=== PATIENT | male | born 1945 | race Caucasian/White ===

== ENCOUNTER 2019-03-31 12:45 | Outpatient (CLI) | payer MEDICARE, OTHER ==
[2019-03-31 17:10] VITALS: BP 119/77
--- NOTE | 2019-03-31 17:10 | SLEEP CARE CONSULTATION ---
Information from patient questionnaire entered by Pema Castro. I have reviewed and concur with the information entered by Pema Castro. This document represents the service I personally performed and the decisions made by me, Keren Swain MD, [facility]. History of Present Illness Reason for Visit: New patient Chief Complaint: reports: Unrefreshed sleep, Observed pauses in breathing, Fatigue, Frequent awakenings at night Duration of Symptoms: more than a year Usual bedtime: 7286-1830 Time it takes to fall asleep: almost immediately Snores at night: Yes (not much) Observed to quit breathing while asleep: Yes Sleeps alone due to snoring: No Number of times waking at night: 2-4 Reasons for waking at night: reports: Pain, Bathroom Toss, Turn, or Twitch while sleeping: Yes Recalls having dreams: Yes Usually gets out of bed at: [id number] Feels refreshed in the morning: No Morning headache: No Sleepy or fatigued during the day: Yes Ever fallen asleep while driving: Yes (rarely) Takes day naps: Yes Dreams during day naps: No Prior sleep studies: No Additional HPI information: I had the pleasure of seeing Mr. Perez today regarding the possibility of him having a sleep disorder. As you know, he is a 73 year old gentleman who complains of shortness of breath at night and in the morning. The patient tells me that he normally goes to bed around 10 - 11 pm, and it takes him approximately just a few minutes to fall asleep. He has been told that he snores loudly and irregularly at night. He has also been observed to stop breathing in his sleep. His can still sleep in the same bed. He can reca ll waking up on the average of 2 - 4 times during the night. Most of the time he wakes up because of having to use the bathroom and pain. He has not awakened because of his own snoring, choking, or having to gasp for air. There is a lot of tossing and turning in his sleep. No somniloquy (sleep talking) or somnambulism (sleep walking). Generally he can recall having dreams. In the morning he usually gets up out of the bed around 6 - 7 a.m. not feeling refreshed nor rested. He usually does not have a morning headache. During the day he does not feel sleepy or fatigued. His score on [place] Sleepiness Scale is 4 out of 24. He has fallen asleep while driving and has gone out of the debbie. He usually takes naps during the day. Upon falling asleep during the day he denies having vivid dreams. He has never had sleep paralysis, experienced cataplexy or symptoms of restless leg syndrome. He denies having impaired concentration during the day. Subjective Initial [place] Sleepiness Scale score: 4 Past Medical History Past Medical History: reports: Hypertension, Diabetes, Arthritis, GERD, Other (knee replacement, elongated prostate) Social History The patient's occupation is RETIRED. Patient is and lives in [place]. Have you smoked in the past 12 months: Yes Cigarettes per day (20/pack): 20 Years of smokin Quit date: 1979 Smoking Pack Years: 16.0 Alcohol use: Yes Alcohol amount and frequency: 1 glass once/month Caffeine use: Yes Caffeine amount and frequency: 2 cups/day Family History Family history of sleep disordered breathing: No Allergies and Home Medications Drug allergies reviewed: Yes Home medication list reviewed: Yes Review of Systems Weight gain over past 5 years: 15-20 Weight loss over past 5 years: 15-20 Cardiovascular: reports: high blood pressure, palpitations Gastrointestinal: reports: heartburn Urinary: reports: frequency, urgency Neurological: denies: headaches, seizure, head trauma, disorientation, speech dysfunction, gait or balance problems, fainting or unconsciousness, other Psychiatric: denies: Attention Deficit Hyperactivity, anxiety, depression, mood disorder, claustrophobia, other Ear/Nose/Throat: reports: tonsillectomy, wisdom teeth removed Endocrine: reports: sluggishness, increased urination Musculoskeletal: reports: joint pain, back pain, muscle pain or cramping Immunologic: denies: sneezing, rash, itching, allergies to food or environment, other Physical Exam Vital signs obtained and entered by: Dr. Swain Blood Pressure: 119/77 Cuff size: regular Heart Rate: 93 O2 Saturation: 98 Height: 5 ft 9 in Weight: 202 lb Body Mass Index: 29.8 BMI Classification: Overweight Neck circumference: 17 Mood/affect: normal HEENT: No craniofacial malformation Nostrils: patent to airflow Turbinates: normal Septum: midline Mouth and throat: narrow oropharynx Soft palate: long Hard palate: normal Uvula: normal Uvula visualization: 50% Mallampati Class II Tongue: normal in size Tonsils: small Chin and jaw: normal size and position Neck: normal w/o lymphadenopathy or thyromegaly Heart: regular rate and rhythm Lungs: clear bilaterally Abdomen: soft, non-tender Extremities: 1+ edema Neurologic: intact, no focal deficits Impression and Plan IMPRESSION: 1. Obstructive Sleep Apnea-Hypopnea Syndrome, as suggested by history of loud and irregular snoring, observed cessation of breath while asleep, frequent awakenings during the night, and unrefreshed sleep. Narrow oropharynx and obesity are common predisposing factors for obstructive sleep apnea-hypopnea syndrome. Untreated obstructive sleep apnea can also cause hypertension. Pathophysiology of sleep-disordered breathing was discussed. I recommend proceeding to polysomnography to confirm the diagnosis and to assess severity. If he has significant sleep disordered breathing, a manual CPAP titration study will also be performed to find the optimal treatment pressure. I informed the patient of what the sleep studies involve and after some discussion, he agreed to proceed. Plan: 1. Schedule polysomnography + manual CPAP titration study 2. Avoid long distance driving or when feeling sleepy. 3. Avoid alcohol, sedative and muscle relaxant around bedtime. 4. Attempt to lose weight. 5. Return in 1 to 2 weeks after the study to discuss results and initiate therapy. I spent 100% of this visit face to face with the patient with greater than 50% of this was spent time counseling the patient and coordination of care.
== END 2019-03-31 12:46 | disposition home or self-care (01) ==
LOC: SC 12:45
PROVIDERS: ATTEND Internal Medicine Pulmonary Disease
DX: G47.8 Other sleep disorders (principal); R06.81 Apnea, not elsewhere classified; R06.83 Snoring
CPT/HCPCS: 99203; 99212

== ENCOUNTER 2019-04-16 19:29 | Outpatient (CLI) | payer MEDICARE, OTHER | END 2019-04-16 19:30 | disposition home or self-care (01) | LOC: SC 19:29 | PROVIDERS: ATTEND Internal Medicine Pulmonary Disease | DX: G47.33 Obstructive sleep apnea (adult) (pediatric) (principal); G47.61 Periodic limb movement disorder | CPT/HCPCS: 95810 ==

== ENCOUNTER 2019-04-30 08:40 | Outpatient (CLI) | payer MEDICARE, OTHER ==
[2019-04-30 09:47] VITALS: BP 118/68
--- NOTE | 2019-04-30 09:47 | SLEEP CARE CONSULTATION ---
Information from patient questionnaire entered by Pema Castro. I have reviewed and concur with the information entered by Pema Castro. This document represents the service I personally performed and the decisions made by me, Ngoc Phoenix RN, MSN, DIRECTOR OF CAPITAL GIVING. History of Present Illness Initial [place] Sleepiness Scale score: 4 Current [place] Sleepiness Scale score: 4 Additional HPI information: MIRA GARDNER returns for follow up and results of the recently performed polysomnography. I explained the pathophysiology behind obstructive sleep apnea. We then spent quite a bit of time discussing different treatment options. For mild obstructive sleep apnea, surgery and oral appliance are alternatives to nasal CPAP therapy but in moderate or severe cases, nasal CPAP is the most effective and reliable treatment. I reviewed the impact of weight changes on sleep apnea and strongly recommended losing weight. After some discussion, the patient opted to go with the nasal CPAP therapy. After discussion with patient it was decided that a manual titration study would be the most comfortable to initiate CPAP treatment for patient concerns. He had many questions about CPAP therapy that were answered. Patient counseled not drink alcohol less than 4 hours before bedtime as it can increase snoring and apnea. Patient does not drink alcohol. Patient was cautioned about risks of drowsy driving until sleepiness symptoms resolve. Patient denies drowsy driving. AAS patient education on snoring and sleep apnea given and reviewed. Sleep Study - Results Polysomnography/Home Sleep Study results: The quality of the study is good. The patient had reduced sleep efficiency due to sleep onset insomnia and frequent awakenings during the night. The sleep architecture was abnormal for sleep fragmentation and reduced amount of time spent in slow wave sleep (N3). Respiratory monitoring showed moderate obstructive sleep apnea-hypopnea (AHI = 25.0) associated with frequent arousals, oxyhemoglobin desaturation and moderate hypoxia (bella oxygen saturation of 79%). The respiratory events occurred mainly during supine sleep (supine AHI = 54.6; non-supine = 17.70). Snore was moderate in intensity. There was severe periodic leg movement of sleep contributing to the sleep fragmentation. Cardiac rhythm was normal sinus rhythm without significant arrhythmia. No abnormal behavior (parasomnia) observed during the night. Allergies and Home Medications Known drug allergies: No Home medication list reviewed: Yes Allergy and home medication list: ranitidine daily prn lisinopril 40mg daily doxazosin 4mg daily amlodipine 5mg daily hydrochlorthiazide 25mg daily metformin 500mg daily meloxicam 15mg daily atovastatin 40mg daily aspirin 81mg daily Review of Systems Review of systems same as previous: Yes Physical Exam Blood Pressure: 118/68 Cuff size: long Heart Rate: 87 O2 Saturation: 98 Height: 5 ft 9 in Weight: 210 lb 12.8 oz Body Mass Index: 31.1 BMI Classification: Obesity Class 1 Impression and Plan 1. Obstructive Sleep Apnea-Hypopnea Syndrome, moderate, with lowest oxygen saturation of 79%. Obviously this is the cause of the patients symptoms of unrefreshed sleep, and excessive daytime sleepiness. Positive pressure therapy could benefit his hypertension and diabetes. As mentioned above, the patient will be scheduled a manual titration study. Because the apnea is more severe supine, I instructed to avoid sleeping supine using pillow positioning until able to start CPAP use. 2. Periodic limb movement, severe, that did fragment patients sleep. Periodic limb movement of sleep (PLMS) is characterized by episodes of repetitive limb movements that occur during sleep and usually involve the lower limbs. The etiology is unknown but can be associated with restless leg syndrome (RLS), neuropathy, spinal cord diseases, kidney disease, rheumatological disorders, narcolepsy, obstructive sleep apnea, and REM sleep behavior disorder. Other fa ctors that can increase PLMS and/or RLS are heredity and iron deficiency as reflected by a low serum ferritin level below 50 to 75mcg / L. Several medications can precipitate or aggravate PLMS such as selective serotonin re- uptake inhibitor antidepressants, tricyclic antidepressants, lithium, and dopamine receptor antagonists with the exception of bupropion. Caffeine can also aggravate PLMS and should be avoided. Sleep hygiene methods can also improve sleep as well as lifestyle changes such as regular exercise. Patient was advised that further evaluation is indicated. He feels he is moving his legs due to leg pain from recent knee surgery. He also has had leg cramps. He is currently going to physical therapy. ] * Schedule manual titration study. * Attempt to lose weight. * Avoid alcohol consumption near bedtime. * Avoid supine sleep until using CPAP. * The patient is again cautioned about driving until sleepiness completely resolves. * Return after sleep study to review results and initiate treatment. Time Spent with Patient (minutes): 40 I spent 100% of this visit face to face with the patient with greater than 50% of this was spent time counseling the patient and coordination of care.
== END 2019-04-30 08:41 | disposition home or self-care (01) ==
LOC: SC 08:40
PROVIDERS: ATTEND Nurse Practitioner Family
DX: G47.33 Obstructive sleep apnea (adult) (pediatric) (principal); G47.61 Periodic limb movement disorder; E66.9 Obesity, unspecified; Z68.31 Body mass index [BMI] 31.0-31.9, adult
CPT/HCPCS: 99215; G0463; 99212

== ENCOUNTER 2019-05-12 19:26 | Outpatient (CLI) | payer MEDICARE, OTHER | END 2019-05-12 19:27 | disposition home or self-care (01) | LOC: SC 19:26 | PROVIDERS: ATTEND Internal Medicine Pulmonary Disease | DX: G47.33 Obstructive sleep apnea (adult) (pediatric) (principal); G47.61 Periodic limb movement disorder | CPT/HCPCS: 95811 ==

== ENCOUNTER 2019-06-16 16:33 | Outpatient (CLI) | payer MEDICARE, OTHER ==
--- NOTE | 2019-06-16 23:14 | SLEEP CARE CONSULTATION ---
Information from patient questionnaire entered by Donna Villareal. I have reviewed and concur with the information entered by Donna Villareal. This document represents the service I personally performed and the decisions made by me, Keren Swain MD, [facility]. History of Present Illness Initial [place] Sleepiness Scale score: 4 Additional HPI information: To minimize the risk of COVID-19 exposure, we have the option to conduct your visit with me over the phone. I will be able to discuss your health and offer medical advice. If you agree, we will bill your insurance. Do you agree to this telephone service: YES. HPI: Mr. Perez was called to follow up of the manual CPAP/BiPAP titration study he had on 05/12/2019. The study showed CPAP was initiated at 4 cmH2O and titrated up to CPAP at 12 cmH2O. CPAP at 12 cmH2O appeared to be optimal (AHI of 2.3 per hour on the pressure). There was REM sleep but minimal supine sleep on the pressure. Oxygen saturation was mildly low due to the frequent residual respiratory events on lower pressures. The patient appeared to have tolerated positive airway pressure therapy well. The patients sleep efficiency was slightly reduced due to a few awakenings after the sleep onset. The sleep architecture was abnormal for sleep fragmentation and reduced amount of time spent in slow wave sleep (N3). There was severe periodic leg movement of sleep contributing to the sleep fragmentation. Cardiac rhythm was normal sinus rhythm without significant arrhythmia. No abnormal behavior (parasomnia) observed during the night. The patient was informed of these findings. I explained to how the CPAP works. He has not started the positive airway pressure therapy yet. I also asked him about restless leg syndrome because of the severe periodic leg movement of sleep. He denies any discomfort in his legs. Allergies and Home Medications Drug allergies reviewed: Yes Home medication list reviewed: Yes Review of Systems Review of systems same as previous: Yes Physical Exam Height: 5 ft 9 in Impression and Plan IMPRESSION: 1. Obstructive Sleep Apnea-Hypopnea Syndrome, moderate (AHI was 25.0), Obviously this is the cause of the patients symptoms of unrefreshed sleep, and excessive daytime sleepiness. As mentioned above, the patient will be started on an autoCPAP set at 8 - 14 cmH2O. Depending on his response and compliance he may be brought back for an overnight CPAP titration study. 2. Periodic leg movement of sleep without restless leg syndrome. The cause of periodic leg movement of sleep is typically unknown. Few known causes are iron deficiency, renal failure, and selective serotonin reuptake inhibitors. Iron and ferritin levels are recommended in addition to the routine blood work. Treatment does not appear necessary. PLAN: 1. Prescription made for an autoCPAP, heated humidifier, and related supplies. 2. Attempt to lose weight and avoid alcohol consumption near bedtime. 4. Return in six weeks for follow up. I will assess his response and compliance at that time. I spent 100% of the 12 minute phone call with the patient with greater than 50% of this spent counseling the patient and coordination of care.
== END 2019-06-16 16:34 | disposition home or self-care (01) ==
LOC: SC 16:33
PROVIDERS: ATTEND Internal Medicine Pulmonary Disease
DX: G47.33 Obstructive sleep apnea (adult) (pediatric) (principal); G47.61 Periodic limb movement disorder

== ENCOUNTER 2019-09-11 13:13 | Outpatient (CLI) | payer MEDICARE, OTHER ==
[2019-09-11 14:20] VITALS: BP 106/64
--- NOTE | 2019-09-11 14:20 | SLEEP CARE CONSULTATION ---
Information from patient questionnaire entered by Donna Villareal. I have reviewed and concur with the information entered by Donna Villareal. This document represents the service I personally performed and the decisions made by me, Ngoc Phoenix, RN, MSN, PRIMARY CARE COORDINATOR. History of Present Illness Service Date and Time: 09/11/2019 1313 Previous diagnosis: Moderate, Obstructive Sleep Apnea-Hypopnea Syndrome AHI: 25.0 (in 2019) Reason for follow up: first compliance Equipment type: CPAP Equipment obtained from: [facility] (Having problems getting supplies despite repeated attempts - he would like to transfer if possible) Mask style: Full face Mask brand: Respironics Backup mask available: Yes (sleep study mask - wis not comfortable ) Last cushion change: 2 weeks ago Prior sleep studies: Yes Year and Where: 2019 - [facility] Type of Sleep Study: Polysomnography CPAP Compliance Data - Data Reviewed with Patient Average duration of nightly device use: 7.5 Compliance rate %: 100 Current pressure setting (cmH2O): 8-14 Humidity settin Heated hose settin Average residual AHI: 8.3 Central apnea: 2.6 Obstructive apnea: 2.9 Hypopnea: 2.9 Average large leak: 6 min 56 sec Subjective Patient concerns: reports: aerophagia (rare), mask discomfort (initially from overtightening ), air blowing in eyes (rare), mask leak noise (adjusts mask infrequently), dry mouth, nose, throat (intermittent mild dry mouth). denies: condensation in mask/hose, nasal congestion, epistaxis Observed to snore while using device: No Current pressure setting perceived as: comfortable On therapy, patient: reports: sleeping better (less nocturia), awakening more refreshed, being more awake and alert during the day, more rested overall. denies: drowsiness while driving Initial [place] Sleepiness Scale score: 4 (in 2020) Current [place] Sleepiness Scale score: 5 Physical Exam Blood Pressure: 106/64 Heart Rate: 78 O2 Saturation: 96 Height: 5 ft 9 in Weight: 220 lb 12.8 oz Body Mass Index: 32.5 BMI Classification: Obese Impression and Plan 1. Obstructive Sleep Apnea-Hypopnea Syndrome, moderate, with good treatment compliance and mild elevation of residual AHI. On CPAP therapy, the patient has better sleep quality and is more rested overall. He is very pleased with benefit of CPAP so far. The patients pressure will be changed to autoCPAP 10-16 cmH20 For elevation of residual AHI. Patient advised to contact me if pressure change is uncomfortable so that it can be adjusted. Goals for apnea control discussed. He is not pleased with current customer service at [employer] and would like to transfer. I explained that depending on his insurance, he may transfer to another company or he may have to restart process with another company and return this CPAP. He is to discuss his options at check out. A list of other DMEs will be given for options. He is advised to contact this office with his choice. The goal is for him to get his supplies as needed from his DME which he feels is not occurring with present DME. Oral dryness can be reduced by adjusting humidity setting higher or heated hose lower or by adjusting both settings. Printed instructions given on how to change humidity and heated hose settings with rationale explaining why to change. Patient advised that chronic oral dryness can affect dental health and advised to follow up with dentist. In addition, there are oral dryness products that can be used to reduce dryness such as Biotene products, Dry mouth rinse and Xylomelts. Patient to discuss best option with dentist. Patient had many questions about his CPAP treatment that were answered. He uses a special hurricaine dryer to dry his equipment. I am not familiar with this product and will have to research. Patient's apnea severity and rationale for treatment to reduce apnea, improve sleep quality and reduce cardiovascular and cerebrovascular events was reviewed. I also reviewed the benefit of consistent device use of CPAP for his hypertension. * * Changeauto CPAP pressure to 10-16 cmH2O * Implement methods to reduce oral dryness. * Notify me if snoring with mask or feeling that the pressure is too much or too little * Attempt to lose weight * Call this office if any problems using CPAP * Return for follow up in 1-2 , or sooner if concerns arise Visit Type: In Office Time Spent with Patient (minutes): 40 Provider Statement: I spent 100% of the Face to Face Visit with the patient with greater than 50% spent counseling the patient and coordination of care.
== END 2019-09-11 13:14 | disposition home or self-care (01) ==
LOC: SC 13:13
PROVIDERS: ATTEND Nurse Practitioner Family
DX: G47.33 Obstructive sleep apnea (adult) (pediatric) (principal); E66.9 Obesity, unspecified; Z68.32 Body mass index [BMI] 32.0-32.9, adult
CPT/HCPCS: 99215; G0463; 99212

== ENCOUNTER 2019-11-06 07:50 | Outpatient (CLI) | payer MEDICARE, OTHER ==
--- NOTE | 2019-11-06 08:39 | SLEEP CARE CONSULTATION ---
Information from patient questionnaire entered by Pema Castro. I have reviewed and concur with the information entered by Pema Castro. This document represents the service I personally performed and the decisions made by me, Sona Foley ARNP. History of Present Illness Service Date and Time: 11/06/2019 0750 Previous diagnosis: Moderate, Obstructive Sleep Apnea-Hypopnea Syndrome AHI: 25 Reason for follow up: other (2 month with pressure change) Equipment type: CPAP Equipment obtained from: [facility] (can't get supplies on time or don't have supplies when he comes to get them) Mask style: Full face Mask brand: [employer] Backup mask available: Yes (taty from study) Last cushion change: 1 month Prior sleep studies: Yes Year and Where: 2019 - [facility] Type of Sleep Study: Polysomnography HPI additional information: MIRA GARDNER was diagnosed to have moderate, AHI 25, obstructive sleep apnea- hypopnea syndrome and returned today for CPAP therapy four month with pressure change follow-up. Sleep Study - Results Prior sleep studies: Yes Year and Where: 2019 - [facility] CPAP Compliance Data - Data Reviewed with Patient Average duration of nightly device use: 7 hours 38 minutes Compliance rate %: 100 Current pressure setting (cmH2O): 10-16 Humidity settin Heated hose settin Average residual AHI: 7.9 Central apnea: 3.2 Obstructive apnea: 3.2 Average large leak: 4 minutes 10 seconds Subjective Patient concerns: reports: dry mouth, nose, throat (occasional dry throat). denies: aerophagia, mask discomfort, air blowing in eyes, mask leak noise, condensation in mask/hose, nasal congestion, epistaxis, other Observed to snore while using device: No Current pressure setting perceived as: comfortable On therapy, patient: reports: sleeping better, awakening more refreshed, being more awake and alert during the day, more rested overall, other (Uses maskfit feature on CPAP machine and feels it helps to keep the mask comfortable and working well.). denies: drowsiness while driving Initial [place] Sleepiness Scale score: 4 (in 2019) Current [place] Sleepiness Scale score: 3 Allergies and Home Medications Drug allergies reviewed: Yes (NKDA) Home medication list reviewed: Yes (finisteride 2 weeks ago for enlarged prostate) Review of Systems Review of systems same as previous: Yes (no changes) Physical Exam Heart Rate: 73 O2 Saturation: 97 Height: 5 ft 9 in Weight: 220 lb Body Mass Index: 32.5 BMI Classification: Obese Impression and Plan 1. Obstructive Sleep Apnea-Hypopnea Syndrome, moderate, with good treatment compliance and fair apnea control, but has elevated residual AHI of 7.9. I will increase his pressure range to 11-17 cm H2O to try and get better apnea control and have him follow up in 1-2 months to see how this is working for him. He has had improvement of his dry mouth/throat with increasing the humidity on his machine with only occasional dry throat noted by patient. He is still having difficulty getting supplies as needed from his DME but may not be able to change suppliers until a year or he would have to give back machine and start over with another DME supplier. He is to discuss with front counter attendant upon discharge. On CPAP therapy, there is improved sleep quality and feels more rested overall. He feels he has more energy and is not out of breath in the morning and ready to get moving on his day. Patient's apnea severity and rationale for treatment to reduce apnea, improve sleep quality and reduce cardiovascular and cerebrovascular events was reviewed. I also reviewed the benefit of consistent device use of CPAP for his hypertension and diabetes. Change auto CPAP pressure at 11-17 cm H2O. Notify me if snoring with the mask or feeling that the pressure is too much or too little. Attempt to lose weight. Return for follow-up in 1-2 months, or sooner if concerns arise. Visit Type: In Office Time Spent with Patient (minutes): 23 Provider Statement: I spent 100% of the Face to Face Visit with the patient with greater than 50% spent counseling the patient and coordination of care.
== END 2019-11-06 07:51 | disposition home or self-care (01) ==
LOC: SC 07:50
PROVIDERS: ATTEND Nurse Practitioner Family
DX: G47.33 Obstructive sleep apnea (adult) (pediatric) (principal); E66.9 Obesity, unspecified; Z68.32 Body mass index [BMI] 32.0-32.9, adult
CPT/HCPCS: 99213; G0463; 99212

== ENCOUNTER 2019-12-22 09:37 | Outpatient (CLI) | payer MEDICARE, OTHER ==
--- NOTE | 2019-12-22 10:42 | SLEEP CARE CONSULTATION ---
Information from patient questionnaire entered by Donna Villareal. I have reviewed and concur with the information entered by Donna Villareal. This document represents the service I personally performed and the decisions made by me, Ngoc Phoenix, RN, MSN, PHYSICAL THERAPY TECHNICIAN. History of Present Illness Service Date and Time: 12/22/2019936 Previous diagnosis: Moderate, Obstructive Sleep Apnea-Hypopnea Syndrome AHI: 25 (in 2019) Reason for follow up: other (6 week with pressure change) Equipment type: CPAP Equipment obtained from: [facility] (pleased with transfer and obtaining supplies as needed.) Mask style: Full face Mask brand: Respironics Last cushion change: alternates two sizes that are replaced every 2 months. [facility] sleep [facility]: Yes [facility] Prior sleep studies: Yes [facility] Compliance Data - Data Reviewed with Patient Average duration of nightly device use: 8.5 Compliance rate %: 100 Current pressure setting (cmH2O): 11-17 Humidity settin Heated hose settin Average residual AHI: 9.3 Average large leak: 6 min 34 sec Subjective Patient concerns: reports: mask discomfort, mask leak noise (with worn headgear and larger mask frame), dry mouth, nose, throat (has reduced from daily to a few times week), other (he has noted medium frame seems too big and has to over tighten headgear, the small frame is best in comfort). denies: aerophagia, air blowing in eyes, condensation in mask/hose, nasal congestion, epistaxis Observed to snore while using device: No Current pressure setting perceived as: comfortable On therapy, patient: reports: sleeping better (and longer), awakening more refreshed, being more awake and alert during the day, more rested overall (with much more energy). denies: drowsiness while driving Initial [place] Sleepiness Scale score: 4 (in 2019) Current [place] Sleepiness Scale score: 4 Allergies and Home Medications Known drug allergies: No Home medication list reviewed: No (finisteride added ) Review of Systems Review of systems same as previous: Yes Physical Exam Height: 5 ft 9 in Impression and Plan 1. Obstructive Sleep Apnea-Hypopnea Syndrome, moderate, with good treatment compliance and elevated residual apnea. On CPAP therapy, the patient has better sleep quality and is more rested overall. Patient is to notify [facility] of mask frame size preference with updating his headgear / frame. As for the mask cushion, he is to look at cushion size in mirror as to fit with mouth open and how fits under nose. He can consider working with RT from [facility] for best fit. The patients pressure will be changed to autoCPAP 12 cmH20 For elevation of residual AHI as noted the best pressure and time used on his manual titration study. Past increase in pressure to [id number] increased his residual from 7.9 to 9.3 with some increase in centrals. Weight is stable. He used a nasal mask on this study but prefers the full face version. Sometimes a full face mask can push the jaw back and increase apnea. Thus patient will not order his new headgear until seen to evaluate new pressure to see if a nasal mask is best for control of his apnea or if pressure needs to be adjusted further. Patient advised to contact me if pressure change is uncomfortable so that it can be adjusted. Goals for apnea control discussed. Oral dryness can be reduced by adjusting humidity setting higher or heated hose lower again. Patient advised that chronic oral dryness can affect dental health and advised to follow up with dentist. In addition, there are oral dryness products that can be used to reduce dryness such as Biotene products, Dry mouth rinse and Xylomelts. Patient to discuss best option with dentist. Patient's apnea severity and rationale for treatment to reduce apnea, improve sleep quality and reduce cardiovascular and cerebrovascular events was reviewed. I also reviewed the benefit of consistent device use of CPAP for hypertension, . * Change CPAP pressure at 12 cmH2O * Implement methods to reduce oral dryness, oral dryness and fit mask better. * Notify me if snoring with mask or feeling that the pressure is too much or too little * Attempt to lose weight * Call this office if any problems using CPAP * Return for follow up in 1 month , or sooner if concerns arise Visit Type: In Office Time Spent with Patient (minutes): 41 Provider Statement: I spent 100% of the Face to Face Visit with the patient with greater than 50% spent counseling the patient and coordination of care.
== END 2019-12-22 09:38 | disposition home or self-care (01) ==
LOC: SC 09:37
PROVIDERS: ATTEND Nurse Practitioner Family
DX: G47.33 Obstructive sleep apnea (adult) (pediatric) (principal)
CPT/HCPCS: 99215; G0463; 99212

== ENCOUNTER 2020-01-22 08:45 | Outpatient (CLI) | payer MEDICARE, OTHER ==
--- NOTE | 2020-01-22 09:29 | SLEEP CARE CONSULTATION ---
Information from patient questionnaire entered by Donna Villareal. I have reviewed and concur with the information entered by Donna Villareal. This document represents the service I personally performed and the decisions made by , Sona Foley ARNP. History of Present Illness Service Date and Time: 01/22/2020 0845 Previous diagnosis: Moderate, Obstructive Sleep Apnea-Hypopnea Syndrome AHI: 25 (in 2019) Reason for follow up: one month (with pressure change) Equipment type: CPAP Equipment obtained from: [facility] (getting supplies as needed) Mask style: Full face Mask brand: Respironics (Dreamwear) Backup mask available: Yes (old mask) Last cushion change: 5 days ago Prior sleep studies: Yes Year and Where: 2019 - [facility] Sleep HPI additional information: MIRA GARDNER was diagnosed to have moderate, AHI 25, obstructive sleep apnea- hypopnea syndrome and returned today for CPAP therapy one month pressure change follow-up. CPAP Compliance Data - Data Reviewed with Patient Average duration of nightly device use: 7.6 Compliance rate %: 100 Current pressure setting (cmH2O): 12 Humidity settin Heated hose settin Average residual AHI: 8.0 Central apnea: 3.2 Obstructive apnea: 3.9 Average large leak: 2 min 32 sec Compliance data discussion: Mask fit check on machine is showing good seal. He is very happy with the setting and does not want to change the pressure. Subjective Patient concerns: reports: mask discomfort (new headgear is a little stiff but it is becoming more comfortable ), mask leak noise (around the chin and side of mask infrequently), dry mouth, nose, throat (periodically, no change since beginning of using CPAP, using more water for humidity). denies: aerophagia, air blowing in eyes, condensation in mask/hose, nasal congestion, epistaxis, other Observed to snore while using device: No Current pressure setting perceived as: comfortable On therapy, patient: reports: sleeping better, awakening more refreshed, being more awake and alert during the day, more rested overall. denies: drowsiness while driving Initial [place] Sleepiness Scale score: 4 (in 2019) Current [place] Sleepiness Scale score: 2 Allergies and Home Medications Drug allergies reviewed: Yes (NKDA) Home medication list reviewed: Yes (danielsteride) Review of Systems Review of systems same as previous: Yes (no changes) Physical Exam Heart Rate: 73 O2 Saturation: 98 Height: 5 ft 9 in Weight: 219 lb Body Mass Index: 32.3 BMI Classification: Obese Impression and Plan 1. Obstructive Sleep Apnea-Hypopnea Syndrome, moderate, with excellent treatment compliance and fair apnea control with elevated AHI at 8.0. On CPAP therapy, the patient has better sleep quality and is more rested overall. He is very happy with the pressure but is agreeable to trying a slight increase to 12-13 cm H2O to try to reduce his AHI without increasing central apneas. He has occasional (1-2 times a week) oral dryness. Oral dryness can be reduced by adjusting humidity setting higher or heated hose lower or by adjusting both settings. Patient advised that chronic oral dryness can affect dental health and advised to follow up with dentist. In addition, there are oral dryness products that can be used to reduce dryness such as Biotene products, Dry mouth rinse and Xylomelts. Patient to discuss best option with dentist. Patient's apnea severity and rationale for treatment to reduce apnea, improve sleep quality and reduce cardiovascular and cerebrovascular events was reviewed. I also reviewed the benefit of consistent device use of CPAP for hypertension. * Changeauto CPAP pressure to 12-13 cmH2O * Notify me if snoring with mask or feeling that the pressure is too much or too little * Attempt to lose weight * Call this office if any problems using CPAP * Return for follow up in 1-2 months, or sooner if concerns arise Counseling Topics: Spare mask, Weight loss health impact Visit Type: In Office Time Spent with Patient (minutes): 20 Provider Statement: I spent 100% of the Face to Face Visit with the patient with greater than 50% spent counseling the patient and coordination of care.
== END 2020-01-22 08:46 | disposition home or self-care (01) ==
LOC: SC 08:45
PROVIDERS: ATTEND Nurse Practitioner Family
DX: G47.33 Obstructive sleep apnea (adult) (pediatric) (principal); E66.9 Obesity, unspecified; Z68.32 Body mass index [BMI] 32.0-32.9, adult
CPT/HCPCS: 99212; G0463

== ENCOUNTER 2020-03-04 08:42 | Outpatient (CLI) | payer MEDICARE, OTHER ==
--- NOTE | 2020-03-04 09:25 | SLEEP CARE CONSULTATION ---
Information from patient questionnaire entered by Donna Villareal. I have reviewed and concur with the information entered by Donna Villareal. This document represents the service I personally performed and the decisions made by , Sona Foley ARNP. History of Present Illness Service Date and Time: 03/04/2020 0842 Previous diagnosis: Moderate, Obstructive Sleep Apnea-Hypopnea Syndrome AHI: 25 (in 2019) Reason for follow up: other (6 week with pressure change) Equipment type: CPAP Equipment obtained from: [facility] (getting supplies as needed) Mask style: Full face Backup mask available: Yes (old mask) Last cushion change: 2 nights ago Prior sleep studies: Yes Year and Where: 2019 - [facility] Sleep HPI additional information: MIRA GARDNER was diagnosed to have moderate, AHI 25, obstructive sleep apnea-hypopnea syndrome and returned today for CPAP therapy 6 week pressure change follow-up. CPAP Compliance Data - Data Reviewed with Patient Average duration of nightly device use: 7 hr 36 min Compliance rate %: 100 Current pressure setting (cmH2O): 12-13 Humidity settin Heated hose settin Average residual AHI: 7.3 Central apnea: 2.9 Obstructive apnea: 3.5 Hypopnea: 0.9 Average large leak: 2 min 14 sec Subjective Patient concerns: reports: mask discomfort (better with new headgeat, presses on upper lip), mask leak noise, dry mouth, nose, throat (1/2 time waking up with dry mouth). denies: aerophagia, air blowing in eyes, condensation in mask/hose, nasal congestion, epistaxis, other Observed to snore while using device: No Current pressure setting perceived as: comfortable On therapy, patient: reports: sleeping better, awakening more refreshed, being more awake and alert during the day, more rested overall. denies: drowsiness while driving Initial [place] Sleepiness Scale score: 4 (in 2019) Current [place] Sleepiness Scale score: 2 Allergies and Home Medications Drug allergies reviewed: Yes (NKDA) Home medication list reviewed: Yes (no changes) Review of Systems Review of systems same as previous: Yes (no changes) Physical Exam Heart Rate: 78 O2 Saturation: 98 Height: 5 ft 9 in Weight: 220 lb Body Mass Index: 32.5 BMI Classification: Obese Impression and Plan 1. Obstructive Sleep Apnea-Hypopnea Syndrome, moderate, with good treatment compliance and fair apnea control with elevation of residual AHI. On CPAP therapy, the patient has better sleep quality and is more rested overall. The patients pressure will be changed to autoCPAP 12-14 cmH20 for elevation of residual AHI. Patient advised to contact me if pressure change is uncomfortable so that it can be adjusted. Goals for apnea control discussed. Patient's download showing average central apneas at 2.9 and obstructive apneas at 3.5. Patient concern about need to higher pressures and asking if may need to go to BIPAP due to centrals. I discussed with patient that I do not think we will need to do this since we are close to having the residual AHI under 5.0. He voiced understanding and agreement to plan. Patient's apnea severity and rationale for treatment to reduce apnea, improve sleep quality and reduce cardiovascular and cerebrovascular events was reviewed. I also reviewed the benefit of consistent device use of CPAP for hypertension. * Changeauto CPAP pressure to 12-14 cmH2O * Notify me if snoring with mask or feeling that the pressure is too much or too little * Call this office if any problems using CPAP * Return for follow up in 1-2 months, or sooner if concerns arise Counseling Topics: Spare mask Visit Type: In Office Time Spent with Patient (minutes): 27 Provider Statement: I spent 100% of the Face to Face Visit with the patient with greater than 50% spent counseling the patient and coordination of care.
== END 2020-03-04 08:43 | disposition home or self-care (01) ==
LOC: SC 08:42
PROVIDERS: ATTEND Nurse Practitioner Family
DX: G47.33 Obstructive sleep apnea (adult) (pediatric) (principal); E66.9 Obesity, unspecified; Z68.32 Body mass index [BMI] 32.0-32.9, adult
CPT/HCPCS: 99213; G0463; 99212

== ENCOUNTER 2020-04-22 08:46 | Outpatient (CLI) | payer MEDICARE, OTHER ==
--- NOTE | 2020-04-22 09:27 | SLEEP CARE CONSULTATION ---
Information from patient questionnaire entered by Donna Villareal. I have reviewed and concur with the information entered by Donna Villareal. This document represents the service I personally performed and the decisions made by , Sona Foley ARNP. History of Present Illness Service Date and Time: 04/22/2020 0846 Previous diagnosis: Moderate, Obstructive Sleep Apnea-Hypopnea Syndrome AHI: 25 (in 2019) Reason for follow up: other (6 week) Equipment type: CPAP Equipment obtained from: [facility] (getting supplies as needed) Mask style: Full face Mask brand: Respironics (Dreamwear) Backup mask available: Yes (old mask) Prior sleep studies: Yes Year and Where: 2019 - [facility] Sleep HPI additional information: MIRA GARDNER was diagnosed to have moderate, AHI 25.0, obstructive sleep apnea- hypopnea syndrome and returned today for CPAP therapy 6 week pressure change follow-up. CPAP Compliance Data - Data Reviewed with Patient Average duration of nightly device use: 7 hr 37 min Compliance rate %: 96.7 Current pressure setting (cmH2O): 12-14 Humidity settin Heated hose settin Average residual AHI: 7.3 Average large leak: 1 min 8 sec Subjective Patient concerns: reports: mask discomfort, dry mouth, nose, throat. denies: aerophagia, air blowing in eyes, mask leak noise, condensation in mask/hose, nasal congestion, epistaxis, other Observed to snore while using device: No Current pressure setting perceived as: comfortable On therapy, patient: reports: sleeping better, awakening more refreshed, being more awake and alert during the day, more rested overall. denies: drowsiness while driving Initial [place] Sleepiness Scale score: 4 (in 2019) Current [place] Sleepiness Scale score: 2 Allergies and Home Medications Drug allergies reviewed: Yes (NKDA) Home medication list reviewed: Yes (no changes) Review of Systems Review of systems same as previous: Yes (no changes) Physical Exam Heart Rate: 80 O2 Saturation: 98 Height: 5 ft 9 in Weight: 223 lb Body Mass Index: 32.9 BMI Classification: Obese Impression and Plan 1. Obstructive Sleep Apnea-Hypopnea Syndrome, moderate, with good treatment compliance and fair apnea control with midly elevated residual AHI. On CPAP therapy, the patient has better sleep quality and is more rested overall. He continues to have an elevated residual AHI despite multiple adjustments. His last titration study showed that he had good apnea control at 12 cmH2O but he did not sleep well night of study and is concerned that it did not measure accurately. He has been watching and sees that he is having higher centrals than obstructions seen on his machine. On his current compliance report his central index average is 2.8 and apnea index is 3.5 with an overall residual average of 7.3. We have had tried increasing and decreasing his pressures without success in obtaining control and would like to have him repeat the titration study to see if we can find the appropriate range needed to get better apnea control. He was informed that he will have to have a Covid test prior to the titration study 72 hours before the test and quarantine himself 3 days prior to the test as well. He voiced understanding and agreement with plan. Patient's apnea severity and rationale for treatment to reduce apnea, improve sleep quality and reduce cardiovascular and cerebrovascular events was reviewed. I also reviewed the benefit of consistent device use of CPAP for hypertension. * Continue autoCPAP pressure at 12-14 cmH2O * Titration study * Covid test 72 hours prior to titration study * Notify me if snoring with mask or feeling that the pressure is too much or too little * Call this office if any problems using CPAP * Return for follow up after titration study, or sooner if concerns arise Counseling Topics: Spare mask Visit Type: In Office Time Spent with Patient (minutes): 27 Provider Statement: I spent 100% of the Face to Face Visit with the patient with greater than 50% spent counseling the patient and coordination of care.
== END 2020-04-22 08:47 | disposition home or self-care (01) ==
LOC: SC 08:46
PROVIDERS: ATTEND Nurse Practitioner Family
DX: G47.33 Obstructive sleep apnea (adult) (pediatric) (principal); E66.9 Obesity, unspecified; Z68.32 Body mass index [BMI] 32.0-32.9, adult
CPT/HCPCS: 99213; G0463; 99212

== ENCOUNTER 2020-08-05 07:41 | Outpatient (CLI) | payer MEDICARE, OTHER ==
--- NOTE | 2020-08-05 08:34 | SLEEP CARE CONSULTATION ---
Information from patient questionnaire entered by Donna Villareal. I have reviewed and concur with the information entered by Donna Villareal. This document represents the service I personally performed and the decisions made by , Sona Foley ARNP. History of Present Illness Service Date and Time: 08/05/2020 0741 Previous diagnosis: Moderate, Obstructive Sleep Apnea-Hypopnea Syndrome AHI: 25 (in 2019) Reason for follow up: three month Equipment type: CPAP Equipment obtained from: [facility] (getting supplies as needed) Mask style: Full face Backup mask available: Yes (old mask) Prior sleep studies: Yes Year and Where: 2019 - [facility] Sleep HPI additional information: MIRA GARDNER was diagnosed to have moderate, AHI 25, obstructive sleep apnea- hypopnea syndrome and returned today for CPAP therapy three month follow-up. CPAP Compliance Data - Data Reviewed with Patient Average duration of nightly device use: 7 hr 18 min Compliance rate %: 98.9 (90 days) Current pressure setting (cmH2O): 12-14 Humidity settin Heated hose settin Average residual AHI: 5.8 (AHI 5.1 - 30 day) Average large leak: 2 min 7 sec Subjective Missed days of use due to: reports: other (forgot) Patient concerns: reports: dry mouth, nose, throat. denies: aerophagia, mask discomfort, air blowing in eyes, mask leak noise, condensation in mask/hose, nasal congestion, epistaxis, other Observed to snore while using device: No Current pressure setting perceived as: comfortable On therapy, patient: reports: sleeping better, awakening more refreshed, being more awake and alert during the day, more rested overall. denies: drowsiness while driving Initial [place] Sleepiness Scale score: 4 (in 2019) Current [place] Sleepiness Scale score: 4 Allergies and Home Medications Home medication list reviewed: Yes (no changes) Review of Systems Review of systems same as previous: Yes (no changes) Physical Exam Heart Rate: 69 O2 Saturation: 97 Height: 5 ft 9 in Weight: 219 lb Body Mass Index: 32.3 BMI Classification: Obese Impression and Plan 1. Obstructive Sleep Apnea-Hypopnea Syndrome, moderate, with good treatment compliance and fair apnea control with minimally elevated AHI. On CPAP therapy, the patient has better sleep quality and is more rested overall. His residual AHI is just minimally elevated and seems to be trending down. His 90 day residual AHI is 5.8 and 30 day is 5.1. He is happy with current setting. I think that we can hold off on the titration study and continue at current pressure setting of 12-14 cmH2O and patient agrees. He still has a lot dry mouth and throat. His humidity setting is at 5 and the heated hose at 2. I advised his to decrease the heated hose by 1. Oral dryness can be reduced by adjusting humidity setting higher or heated hose lower or by adjusting both settings. In addition, there are oral dryness products that can be used to reduce dryness such as Biotene products, Dry mouth rinse and Xylomelts. Patient to discuss best option with dentist. He has trouble with the headgear only lasting 3 months because the velcro will not stay connected to the strap. He would like to see if he can get this headgear every 3 months. I advised him that the insurance will not pay for a new headgear that often. He then requested to try a Respironics Dreamwear nasal cushion mask to see if it would work better for him. I will write for a mask refitting to try out this mask. He voiced understanding and agreement with plan. Patient's apnea severity and rationale for treatment to reduce apnea, improve sleep quality and reduce cardiovascular and cerebrovascular events was reviewed. I also reviewed the benefit of consistent device use of CPAP for hypertension. * Continue auto CPAP pressure at 12-14 cmH2O * Mask refitting * Notify me if snoring with mask or feeling that the pressure is too much or too little * Attempt to lose weight * Call this office if any problems using CPAP * Return for follow up in 1 year, or sooner if concerns arise Counseling Topics: Spare mask, Weight loss health impact Visit Type: In Office Time Spent with Patient (minutes): 29 Provider Statement: I spent 100% of the Face to Face Visit with the patient with greater than 50% spent counseling the patient and coordination of care.
== END 2020-08-05 07:42 | disposition home or self-care (01) ==
LOC: SC 07:41
PROVIDERS: ATTEND Nurse Practitioner Family
DX: G47.33 Obstructive sleep apnea (adult) (pediatric) (principal); E66.9 Obesity, unspecified; Z68.32 Body mass index [BMI] 32.0-32.9, adult
CPT/HCPCS: 99213; G0463; 99212

== ENCOUNTER 2021-05-04 08:29 | Outpatient (CLI) | payer MEDICARE, OTHER ==
[2021-05-04 09:12] VITALS: BP 135/78
--- NOTE | 2021-05-04 09:12 | SLEEP CARE CONSULTATION ---
Information from patient questionnaire entered by Amber Oconnor MA. I have reviewed and concur with the information entered by Amber Oconnor MA. This document represents the service I personally performed and the decisions made by , Sona Foley ARNP. History of Present Illness Service Date and Time: 05/04/2021 0829 Previous diagnosis: Moderate, Obstructive Sleep Apnea-Hypopnea Syndrome AHI: 25 (in 2019) Reason for follow up: other (9 MONTH F/U,) Equipment type: CPAP Equipment obtained from: Other ([facility], [place]) Mask style: Nasal Mask brand: Respironics (Dreamwear) Backup mask available: Yes (old mask) Last cushion change: 2 weeks ago Prior sleep studies: Yes Year and Where: 2019 - [facility] HPI additional information: MIRA GARDNER was diagnosed to have moderate, AHI 25, obstructive sleep apnea- hypopnea syndrome and returned today for CPAP therapy 9 month follow-up. Sleep Study - Results Prior sleep studies: Yes Year and Where: 2019 - [facility] CPAP Compliance Data - Data Reviewed with Patient Average duration of nightly device use: 6 HOURS 30 MINUTES Compliance rate %: 90 (30 days) Current pressure setting (cmH2O): 12-14 Humidity settin Heated hose settin Average residual AHI: 4.3 Average large leak: 4 MINUTES 54 SECONDS Subjective Missed days of use due to: reports: travel, other (RECALLED MACHINE WASN'T USING IT BUT STARTED AGAIN, ) Patient concerns: reports: dry mouth, nose, throat. denies: aerophagia, mask discomfort, air blowing in eyes, mask leak noise, condensation in mask/hose, nasal congestion, epistaxis, other Observed to snore while using device: No Current pressure setting perceived as: comfortable On therapy, patient: reports: sleeping better (FELT LIKE HE HAS TO USE IT. AND RESTARTED.), awakening more refreshed, being more awake and alert during the day, more rested overall. denies: drowsiness while driving Initial [place] Sleepiness Scale score: 4 (in 2019) Current [place] Sleepiness Scale score: 4 (2021) Allergies and Home Medications Known drug allergies: No Drug allergies reviewed: Yes Home medication list reviewed: Yes (no changes) Allergy and home medication list: Allergies No Known Drug Allergies Allergy (Verified 02/07/14 20:25) Review of Systems Review of systems same as previous: Yes (no changes) Physical Exam Vital signs obtained and entered by: SILVIANO GRADY Blood Pressure: 135/78 (RIGHT, PULSE 98, RESP 16,) Cuff size: wrist Heart Rate: 72 O2 Saturation: 98 (PAPER MASK) Height: 5 ft 9 in Weight: 210 lb (W/O CLOTHING) Body Mass Index: 31.0 BMI Classification: Obese Impression and Plan 1. Obstructive Sleep Apnea-Hypopnea Syndrome, moderate, with fair treatment compliance and good apnea control with minimal elevation of residual AHI. On CPAP therapy, the patient has better sleep quality and is more rested overall. He stopped using his CPAP due to the Kae recall on his Dreamstation but he just was starting to feel worse all the time. He decided to take his chances and started using his CPAP. He states he found out that his machine was not supplied through his current Medicare insurance and he can get a replacement. I will order him a new device, patient also requests an Airsense 11 Auto set. A DWO prescription will be made. Compliance guidelines for new device and follow up discussed. Patient's apnea severity and rationale for treatment to reduce apnea, improve sleep quality and reduce cardiovascular and cerebrovascular events was reviewed. I also reviewed the benefit of consistent device use of CPAP for hypertension. Patient encouraged to try to lose weight to improve overall health and to reduce apneas. * Continue auto CPAP pressure at 12-14 cmH2O * Update device * Updates supplies as needed * Notify me if snoring with mask or feeling that the pressure is too much or too little * Attempt to lose weight * Call this office if any problems using CPAP * Return for follow up one month after obtaining new device, or sooner if concerns arise Counseling Topics: Spare mask, Weight loss health impact Visit Type: In Office Time Spent with Patient (minutes): 22 Provider Statement: I spent 100% of the Face to Face Visit with the patient with greater than 50% spent counseling the patient and coordination of care.
== END 2021-05-04 08:30 | disposition home or self-care (01) ==
LOC: SC 08:29
PROVIDERS: ATTEND Nurse Practitioner Family
DX: G47.33 Obstructive sleep apnea (adult) (pediatric) (principal)
CPT/HCPCS: 99213; G0463; 99212

== ENCOUNTER 2021-06-07 19:32 | Outpatient (CLI) | payer MEDICARE, OTHER | END 2021-06-07 19:33 | disposition home or self-care (01) | LOC: SC 19:32 | PROVIDERS: ATTEND Nurse Practitioner Family | DX: G47.33 Obstructive sleep apnea (adult) (pediatric) (principal); G47.61 Periodic limb movement disorder | CPT/HCPCS: 95810 ==

== ENCOUNTER 2021-06-23 08:14 | Outpatient (CLI) | payer MEDICARE, OTHER ==
[2021-06-23 08:59] VITALS: BP 137/87
--- NOTE | 2021-06-23 08:59 | SLEEP CARE CONSULTATION ---
Information from patient questionnaire entered by Amber Oconnor MA. I have reviewed and concur with the information entered by Amber Oconnor MA. This document represents the service I personally performed and the decisions made by Og vincent Caren J, ARNP. History of Present Illness Service Date and Time: 06/23/2021 0814 Initial [place] Sleepiness Scale score: 4 (in 2019) Current [place] Sleepiness Scale score: 6 (07/08) Additional HPI information: MIRA GARDNER returns for follow up and results of the recently performed polysomnography. Patient to continue the nasal CPAP therapy. Sleep Study - Results Type of Sleep Study: Polysomnography (F/U POLY, 06/07/21 [facility],) Prior sleep studies: Yes Year and Where: 2019 - [facility] Polysomnography/Home Sleep Study results: IMPRESSION: The quality of the study is good. The patient had slightly reduced s leep efficiency due to frequent awakenings near the end of the study. The sleep architecture was abnormal for sleep fragmentation and reduced amount of time spent in REM and slow wave sleep (N3). Respiratory monitoring showed severe obstructive sleep apnea-hypopnea (AHI = 31.8) associated with frequent arousals, oxyhemoglobin desaturation and mild hypoxia ([place] oxygen saturation of 85%). The respiratory events occurred more frequently during supine sleep (supine AHI = 74.5; non-supine = 25.72). Snore was light in intensity. There was severe periodic leg movement of sleep contributing to the sleep fragmentation. Cardiac rhythm was normal sinus rhythm without significant arrhythmia. No abnormal behavior (parasomnia) observed during the night. Allergies and Home Medications Known drug allergies: No Drug allergies reviewed: Yes Home medication list reviewed: Yes (No changes) Allergy and home medication list: Allergies No Known Drug Allergies Allergy (Verified 02/07/14 20:25) Review of Systems Review of systems same as previous: Yes (no changes) Physical Exam Vital signs obtained and entered by: Lakhwinder GARZAMA Blood Pressure: 137/87 (RIGHT , PULSE 87, RESP 16,) Cuff size: wrist Heart Rate: 80 O2 Saturation: 98 (PAPER ) Height: 5 ft 9 in Weight: 204 lb (W/O CLOTHES) Body Mass Index: 30.1 BMI Classification: Obese Impression and Plan 1. Obstructive Sleep Apnea-Hypopnea Syndrome, severe, with lowest oxygen saturation of 85%. The patient will be continued on nasal autoCPAP therapy with pressure set at 12-14 cmH2O. He needs to update his device but the insurance required another sleep study to verify diagnosis and severity. He continues to have sleep disordered breathing, severe GAYE. 2. Periodic limb movement, severe, that did fragment patients sleep. Periodic limb movement of sleep (PLMS) is characterized by episodes of repetitive limb movements that occur during sleep and usually involve the lower limbs. The etiology is unknown but can be associated with restless leg syndrome (RLS), low serum ferritin level, neuropathy, spinal cord diseases, kidney disease, rheumatological disorders, narcolepsy, obstructive sleep apnea, and REM sleep behavior disorder. Caffeine can also aggravate PLMS and should be avoided. Sleep hygiene methods can also improve sleep as well as lifestyle changes such as regular exercise. Patient was advised that no treatment is needed at this time. If symptoms increase, then further evaluation is indicated. * Continue auto CPAP pressure at 12-14 cmH2O * Update device as ordered at last visit * Notify me if snoring with mask or feeling that the pressure is too much or too little * Patient encouraged to try to lose weight * Call this office if any problems using CPAP * Return for follow up one month after obtaining new device, or sooner if concerns arise Counseling Topics: Weight loss health impact Prescriptions: Auto CPAP, Device supplies Visit Type: In Office Time Spent with Patient (minutes): 20 Provider Statement: I spent 100% of the Face to Face Visit with the patient with greater than 50% spent counseling the patient and coordination of care.
== END 2021-06-23 08:15 | disposition home or self-care (01) ==
LOC: SC 08:14
PROVIDERS: ATTEND Nurse Practitioner Family
DX: G47.33 Obstructive sleep apnea (adult) (pediatric) (principal); G47.61 Periodic limb movement disorder; E66.9 Obesity, unspecified; Z68.30 Body mass index [BMI] 30.0-30.9, adult
CPT/HCPCS: 99213; G0463; 99212

== ENCOUNTER 2022-01-25 09:31 | Outpatient (CLI) | payer MEDICARE, OTHER ==
[2022-01-25 10:21] VITALS: BP 126/74
--- NOTE | 2022-01-25 10:21 | SLEEP CARE CONSULTATION ---
Information from patient questionnaire entered by Ayala Chavez. I have reviewed and concur with the information entered by Ayala Chavez. This document represents the service I personally performed and the decisions made by me, Sona Foley ARNP. History of Present Illness Service Date and Time: 01/25/2022930 Previous diagnosis: Moderate, Obstructive Sleep Apnea-Hypopnea Syndrome AHI: 25 (in 2019) Reason for follow up: first compliance after device update Equipment type: CPAP (RESMED) Equipment obtained from: Other ([facility]; getting supplies) Mask style: Full face Mask brand: Respironics (Dreamwear) Backup mask available: Yes (old mask) Last cushion change: 1 month Prior sleep studies: Yes Year and Where: 2019 - [facility] Type of Sleep Study: Polysomnography (F/U POLY, 06/07/21 [facility],) HPI additional information: MIRA GARDNER was diagnosed to have moderate, AHI 25, obstructive sleep apnea- hypopnea syndrome and returned today for CPAP therapy first compliance after updating device follow-up. Sleep Study - Results Type of Sleep Study: Polysomnography (F/U POLY, 06/07/21 [facility],) Prior sleep studies: Yes Year and Where: 2019 - [facility] CPAP Compliance Data - Data Reviewed with Patient Average duration of nightly device use: 6 HRS, 34 MIN Compliance rate %: 93 (12/24/21-; 30/30 days used) Current pressure setting (cmH2O): 12-14 Average residual AHI: 3.1 Central apnea: 1.6 Obstructive apnea: 1.2 Average large leak: 1.2 Subjective Missed days of use due to: reports: other (power outage) Patient concerns: denies: aerophagia, mask discomfort, air blowing in eyes, mask leak noise, condensation in mask/hose, nasal congestion, dry mouth, nose, throat, epistaxis Observed to snore while using device: No Current pressure setting perceived as: comfortable On therapy, patient: reports: sleeping better, awakening more refreshed, being more awake and alert during the day, more rested overall. denies: drowsiness while driving Initial [place] Sleepiness Scale score: 4 (in 2019) Allergies and Home Medications Drug allergies reviewed: Yes (NKDA) Home medication list reviewed: Yes (eliminated - metformin and Amlodipine; started trulicity 0.75 mg weekly inj) Review of Systems Review of systems same as previous: Yes (no changes) Physical Exam Vital signs obtained and entered by: AYALA Huynh MA Blood Pressure: 126/74 (LEFT ARM) Cuff size: regular Heart Rate: 64 O2 Saturation: 99 Height: 5 ft 9 in Weight: 195 lb 9.6 oz Weight change since last visit: 9 lb loss Body Mass Index: 28.8 BMI Classification: Overweight Impression and Plan 1. Obstructive Sleep Apnea-Hypopnea Syndrome, moderate, with good treatment compliance and good apnea control. On CPAP therapy, the patient has better sleep quality and is more rested overall. Patient has significant improvement of their sleep apnea and are satisfied with current CPAP therapy. Patient denies problems with oral dryness, nasal congestion, epistaxis, skin irritation or aerophagia. Patient's apnea severity and rationale for treatment to reduce apnea, improve sleep quality and reduce cardiovascular and cerebrovascular events was reviewed. I also reviewed the benefit of consistent device use of CPAP for hypertension and diabetes. 2. Overweight, unspecified. Currently patients BMI is 28.8. He changed diet and lost weight. Obesity increases the risk of apnea, CPAP pressure requirements and overall health risks especially cardiovascular and diabetes. Thus patient is advised to continue to try to lose weight. The patient's CPAP pressure range should accommodate some weight loss. Symptoms to report for additional pressure adjustment discussed. * Continue auto CPAP pressure at 12-14 cmH2O * Update supplies * Notify me if snoring with mask or feeling that the pressure is too much or too little * Attempt to lose weight * Call this office if any problems using CPAP * Return for follow up in 1 year, or sooner if concerns arise Counseling Topics: Spare mask, Weight loss health impact Visit Type: In Office Time Spent with Patient (minutes): 24 Provider Statement: I spent 100% of the Face to Face Visit with the patient with greater than 50% spent counseling the patient and coordination of care.
== END 2022-01-25 09:32 | disposition home or self-care (01) ==
LOC: SC 09:31
PROVIDERS: ATTEND Nurse Practitioner Family
DX: G47.33 Obstructive sleep apnea (adult) (pediatric) (principal); E66.3 Overweight; Z68.28 Body mass index [BMI] 28.0-28.9, adult
CPT/HCPCS: 99213; G0463; 99212

== ENCOUNTER 2023-01-25 09:30 | Outpatient (CLI) | payer MEDICARE, OTHER ==
--- NOTE | 2023-01-25 10:00 | Sleep Patient Instructions ---
Sleep Center Visit Summary - Patient Visit Information Reason for Visit: Annual visit - Patient Instructions Additional Instructions: You will continue with CPAP therapy with pressure set at 12-14 cmH2O. A supply prescription will be updated with your DME. We encourage you to continue to try to lose weight. Please follow up with the sleep care office in 1 year. - Clinic Information Contact: [facility] [address] [place] [address] [email or web address] T: [phone]
--- NOTE | 2023-01-25 10:05 | SLEEP CARE CONSULTATION ---
Information from patient questionnaire entered by Luz Chavez. I have reviewed and concur with the information entered by Luz Chavez. This document represents the service I personally performed and the decisions made by me, Sona Foley ARNP. History of Present Illness Service Date and Time: 01/25/2023 0930 Previous diagnosis: Moderate, Obstructive Sleep Apnea-Hypopnea Syndrome AHI: 25 (in 2019) Reason for follow up: annual (LAST SEEN 01/2022) Equipment type: CPAP (RESMED Airsense 11, s/u 10/2021) Equipment obtained from: Other ([facility]; getting supplies) Mask style: Full face Mask brand: Respironics (Dreamwear, medium wide, small frame) Backup mask available: Yes Last cushion change: 2 weeks Prior sleep studies: Yes Year and Where: 2019 - [facility] Type of Sleep Study: Polysomnography (F/U POLY, 06/07/21 [facility],) HPI additional information: MIRA GARDNER was diagnosed to have moderate, AHI 25, obstructive sleep apnea- hypopnea syndrome and returned today for CPAP therapy annual follow-up. Sleep Study - Results Type of Sleep Study: Polysomnography (F/U POLY, 06/07/21 [facility],) Prior sleep studies: Yes Year and Where: 2019 - [facility] CPAP Compliance Data - Data Reviewed with Patient Average duration of nightly device use: 6 HRS 39 MINS Compliance rate %: 92 (342/365 days used) Current pressure setting (cmH2O): 12-14 Average residual AHI: 2.5 Central apnea: 1.3 Obstructive apnea: 0.9 Average large leak: 1 L/min Subjective Missed days of use due to: reports: illness, travel, other (2 in last 30 days) Patient concerns: reports: mask discomfort (sometimes has to tighten mask too much and causes nose soreness), air blowing in eyes, mask leak noise, dry mouth, nose, throat. denies: aerophagia, condensation in mask/hose, nasal congestion, epistaxis Observed to snore while using device: No Current pressure setting perceived as: comfortable On therapy, patient: reports: sleeping better, awakening more refreshed, being more awake and alert during the day, more rested overall. denies: drowsiness while driving Initial [place] Sleepiness Scale score: 4 (in 2019) Current [place] Sleepiness Scale score: 4 Allergies and Home Medications Known drug allergies: No Drug allergies reviewed: Yes Home medication list reviewed: Yes (Trulicity, weekly injection) Allergy and home medication list: Allergies No Known Drug Allergies Allergy (Verified 01/24/23 09:00) Review of Systems Review of systems same as previous: No (surgery on left wrist to remove growth) Physical Exam Vital signs obtained and entered by: SONA HEWITT Blood Pressure: 150/78 Cuff size: wrist (right) Heart Rate: 65 O2 Saturation: 98 Height: 5 ft 9 in Weight: 192 lb 6.4 oz Weight change since last visit: 3 lbs loss Body Mass Index: 28.4 BMI Classification: Overweight Impression and Plan 1. Obstructive Sleep Apnea-Hypopnea Syndrome, moderate, with good treatment compliance and good apnea control. On CPAP therapy, the patient has better sleep quality and is more rested overall. Patient has significant improvement of their sleep apnea and is satisfied with current CPAP therapy. Patient has been having some difficulty with some mask occasionally getting a good seal and he will over-tighten his mask. He gets some air leaking, mask discomfort as well as dry mouth. 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 I advised him to adjust his humidifier and we discussed reasons why. He may also use snoring strips to help keep his lips together of his mouth is coming open and he is oral venting. He voiced un derstanding and agreement with this plan. We will follow-up with him next year. Patient's apnea severity and rationale for treatment to reduce apnea, improve sleep quality and reduce cardiovascular and cerebrovascular events was reviewed. I also reviewed the benefit of consistent device use of CPAP for hypertension and diabetes. 2. Overweight, unspecified. Currently patients BMI is 28.4. Obesity increases the risk of apnea, CPAP pressure requirements and overall health risks especially cardiovascular and diabetes. Thus patient is advised to continue to try to lose weight. * Continue auto CPAP pressure at 12-14 cmH2O * Update supply prescription * Notify me if snoring with mask or feeling that the pressure is too much or too little * Attempt to lose weight * Call this office if any problems using CPAP * Return for follow up in 1 year, or sooner if concerns arise Counseling Topics: Spare mask, Weight loss health impact Prescriptions: Device supplies Follow up with Sleep Care in: 1 year Visit Type: In Office Time Spent with Patient (minutes): 28 Provider Statement: I spent 100% of the Face to Face Visit with the patient with greater than 50% spent counseling the patient and coordination of care.
[2023-01-25 10:06] VITALS: BP 150/78; O2SAT 98
== END 2023-01-25 09:31 | disposition home or self-care (01) ==
LOC: SC 09:30
PROVIDERS: ATTEND Nurse Practitioner Family
DX: G47.33 Obstructive sleep apnea (adult) (pediatric) (principal); E66.3 Overweight; Z68.28 Body mass index [BMI] 28.0-28.9, adult
CPT/HCPCS: 99213; G0463; 99212